=== PATIENT | female | born 1965 | race Caucasian/White ===

== ENCOUNTER 2018-01-06 06:47 | Emergency (ER) | payer BC ==
[~2018-01-06] VITALS: Ht 154.9 cm; Wt 98.5 kg
[~2018-01-06 06:47] MED LIST: ALBU1AER9 PO; CLOB1OIN2 TOP; GLC/500 PO; GLUC-221; INSDGIPEN SC; ONDA4TAB46 PO; RANI150T85 PO; REPA2TAB11 PO; TRIA0.1C55 TOP
[2018-01-06 06:48] VITALS: TEMP 36.7; Ht 154.9 cm; Wt 98.5 kg
[2018-01-06] MEDS ORDERED: DiphenhydrAMINE HCL 50 MG/ML VIAL IV STA (07:02)
[2018-01-06] MEDS ORDERED: METOCLOPRAMIDE HCL INJ 5 MG/ML 2 ML VIAL IV. STA (07:02)
[2018-01-06] MEDS ORDERED: KETOROLAC TROMETHAMINE 30 MG/ML VIAL IV STA (07:02)
[2018-01-06] MEDS ORDERED: SODIUM CHLORIDE 0.9% 1000ML 1,000 ML IV ONE (07:15)
[2018-01-06] MEDS ORDERED: METF-384 PO (07:25)
[2018-01-06] MEDS ORDERED: GLIP-197 PO (07:25)
[2018-01-06] MEDS ORDERED: ASPI81TA28 PO (07:25)
[2018-01-06 07:59] VITALS: BP 152/90; PULSE 81; O2SAT 100
[2018-01-06] MEDS ORDERED: SIMV20TA5 PO (10:17)
--- NOTE | 2018-01-06 16:11 | EMERGENCY ROOM VISIT NOTE ---
ED Visit Note First contact with patient: 06:52 CHIEF COMPLAINT: Migraine headache. HISTORY OF PRESENT ILLNESS: Ms. Rich is a 52 year-old white female who ambulates into the ED accompanied by her complaining of a migraine headache. She reports a gradual onset of a severe migraine headache that started approximately 4 hours ago. The pain is constant and it is slowly increasing in severity. This is not the worst headache of the life and is similar to previous migraines. Currently she describes the headache as a throbbing sensation/pain in the mid frontal area. She rates the pain a 8/10. The pain is nonradiating. She has not identified any aggravating or alleviating factors related to her pain. She reports she took an [id number] migraine headache medication without relief of her discomfort. There is been associated light sensitivity, nausea but no vomiting vomiting. She denies fever, chills, sweats, skin eruptions, skin color changes, dizziness , abnormal neurological symptoms, recent head trauma, recent upper respiratory tract symptoms, sinus infections, dental pains, dental surgeries, neck pain/ stiffness, chest pain, shortness of breath, extremity weakness/numbness/ tingling. REVIEW OF SYSTEMS: As noted above in History of Present Illness; all systems are reviewed with the patient and found to be negative as noted above otherwise. PAST MEDICAL HISTORY: (1) Asthma (2) Asthmatic bronchitis (3) CHEST PAIN NEC (4) COMMON MIGRAINE W/O INTRACTABLE MIGRAINE (5) DIAB VIRIDIANA WO COMPL, TYPE II OR UNSPEC TYPE, NOT UNCNTRLD (6) Diabetes mellitus, type 2 (7) endoscopy (8) FAM HX-CARDIOVAS DIS NEC (9) Gastroesophageal reflux disease (10) Hiatal hernia (11) History of - tubal ligation (12) Hysterectomy (13) Tonsillectomy and adenoidectomy CURRENT MEDICATIONS: Medications Dose Route/Sig Max Daily Dose Days Date Category Aspirin Ec (Aspirin) 81 Mg Tab 81 Mg PO DAILY 01/06/18 Reported Glipizide Er (Glipizide) 5 Mg Tab 5 Mg PO DAILY 90 01/06/18 Reported Glucophage (Metformin Hcl) 1,000 Mg Tab 1,000 Mg PO BID 01/06/18 Reported Zocor (Simvastatin) 20 Mg Tab 20 Mg PO QPM 10/24/15 Reported ALLERGIES TO MEDICATIONS: Codeine, oxycodone, sumatriptan. SOCIAL HISTORY: Patient is currently employed; she feels safe in her home environment; she denies tobacco and alcohol use. PHYSICAL EXAM: Vital Signs: Date Time Temp Pulse Resp B/P (MAP) Pulse Ox O2 Delivery O2 Flow Rate FiO2 01/06/18 07:59 81 16 152/90 100 Room Air 01/06/18 06:48 36.7 93 17 150/84 94 Room Air GENERAL: 52 year-old white female in moderate distress due to pain, afebrile and hemodynamically stable. Found lying in a darkened room with sunglasses on. NEUROLOGIC: Awake, alert and oriented to person place and time. Answering questions appropriately and following commands. Cranial nerves II-XII grossly intact. Deep tendon reflexes 2+ and bilaterally symmetric. No focal neurologic deficits noted. SKIN: Warm, dry and pink. No rashes, lesions or soft tissue trauma noted. HEENT: Normocephalic, atraumatic. Pupils equal, round and reactive. Extraocular movements intact and there is no nystagmus. Sclera anicteric. Ears , nose and oropharynx clear. The patient is photophobic, precluding funduscopic examination/ptic fundi are normal and the discs are flat. NECK: Soft and supple. No tenderness through the central cervical region or cervical musculature. Negative Kernigs and negative Brudzinski signs. No lymphadenopathy, jugular venous distention, or bruits noted. THORAX: Lungs clear to auscultation and equal bilaterally with no wheezing, crackles, rhonchi or stridor and equal chest wall movements. HEART: Regular rate and rhythm with no murmurs, rubs or gallops. ABDOMEN: Soft and nontender with bowel sounds present in all quadrants; no rigidity, rebound tenderness, organomegaly or guarding. MUSCULOSKELETAL: Full range of motion of all joints without any significant discomfort and the gait is normal. ED COURSE: Patient is assessed with history and physical examination. Patient's medication list was reviewed. Patient was hydrated with normal saline and received 30 mg of Toradol IV for pain, 10 mg of Reglan IV for nausea and 50 mg of Benadryl IV. Patient was reassessed multiple times during her stay in the emergency department. Patient was educated about her condition and instructed on her treatment plan; she verbalized understanding and agreement with this plan. CLINICAL IMPRESSION: Migraine headache DECISION MAKIN-year-old female who presents for evaluation of headache. She is afebrile, well appearing, and hemodynamically stable. She has no signs of a sinus, dental , or ear infection and no evidence of meningismus. She is neurologically intact. I do not suspect a headache to be secondary to a subarachnoid hemorrhage, meningitis, encephalitis, or intracranial mass lesion. DISPOSITION: Patient was discharged to home in stable condition accompanied by her ; prior to departure she was reassessed and subjectively reported she was feeling much better and rated her discomfort 3/10. DISCHARGE INSTRUCTIONS: Rest at home, in a quiet darkened room and allow the medication to work for the pain. Continue to follow up current treatment plan prescribed by your physician for your migraine headaches. See your own doctor in follow-up this week for continued care and treatment. Return to the emergency department as needed for worsening/uncontrolled pain, fevers, abnormal neurological symptoms or any new/concerning symptoms.
== END 2018-01-06 08:25 | disposition home or self-care (01) ==
LOC: C.EDB 06:48
DX: G43.909 Migraine, unspecified, not intractable, without status migrainosus (principal); E11.9 Type 2 diabetes mellitus without complications; J45.909 Unspecified asthma, uncomplicated; Z88.8 Allergy status to other drugs, medicaments and biological substances; Z79.899 Other long term (current) drug therapy; Z79.82 Long term (current) use of aspirin